=== PATIENT | male | born 1995 | race Caucasian/White ===

== ENCOUNTER 2018-04-21 01:40 | Inpatient (IN) ==
--- NOTE | 2018-04-21 01:47 | Emergency Department Note ---
Disposition Clinical Impression: Suicidal ideation Suicide attempt by hanging Qualifiers: Encounter type: initial encounter Qualified Code(s): T71.162A - Asphyxiation due to hanging, intentional self-harm, initial encounter Disposition: Admitted As Inpatient Condition: Fair Time of Disposition: 04:33 General Adult HPI - General Stated complaint: SI Time Seen by Provider: 04/21/18 01:46 Source: patient, EMS Mode of arrival: EMS Limitations: no limitations Nursing Notes Reviewed: Yes Vital Signs Reviewed: Yes - History of Present Illness HPI Narrative: Patient is a 22-year-old male who is transferred from [facility] via EMS for suicidal ideation and one a evaluation. Patient states that he has history of depression and anxiety, does not take his medications and has not for some time. Patient has had suicidal ideation for many months, with attempt in December with attempt of slashing his wrists. This was not successful, and did not get hospitalized during this time. Patient states that today he had suicidal ideation, went to the store and purchased a rope, he notes he is very specific in the type of breath that he purchased, with the intent to go to a tree and hang himself. He states that he did attempt to hang himself at his brother's home, however his brother found him and he left at that point. He notes he then went to his mother's house, and while being chased by his stepfather, he attempted to hang himself again. His stepfather, grabbed him and the police were called. There is also note that the patient was driving 100 miles per hour, and the police also were trying to find him for this. Patient states that he did drink alcohol today, denies drug use. No auditory or visual hallucinations. Multiple suicide attempts in the past. No homicidal ideation. - Related Data Allergies Allergy/AdvReac Type Severity Reaction Status Date / Time Bee Pollen Allergy Anaphylaxis Verified 04/21/18 02:02 venom-honey bee Allergy Anaphylaxis Verified 04/21/18 02:02 [bee venom (honey bee)] Review of Systems: In addition to that documented in the HPI above, the additional ROS was obtained: General: Denies fever. Denies chills. Denies weight loss. Denies behavioral change. Eyes: Denies visual changes. ENT: Denies nasal congestion. Denies sore throat. Denies hearing change. Cardio: Denies chest pain. Denies palpitations. Respiratory: Denies cough. Denies shortness of breath. Denies wheezing. GI: Denies nausea, Denies vomiting, or diarrhea. Denies hematochezia denies melena. Denies abdominal pain. : Denies dysuria, hematuria, or urinary retention MSK: Denies back pain. Denies joint swelling. Neuro: Denies slurred speech. Denies numbness or tingling. Denies focal weakness. Denies headache. Denies loss of consciousness. Psych: Affirm suicidal ideation, no visual, auditory or further hallucinations, denies homicidal ideation, affirms history of depression and anxiety All systems ED: reviewed and negative except as stated. Review of Systems: As Per HPI Past Medical History - Past Medical History Medical history: Reports: no medical history Surgical history: Reports: non-contributory Psychiatric history: Reports: anxiety - Social History Smoking Status: Never smoker Smokeless Tobacco Status: No Alcohol use: Reports: occasionally Drug use: Reports: none Physical Exam General: Conversant. No apparent distress. Follow commands. Appears stated age. Neck: No JVD. Trachea midline. Neck supple. No midline tenderness, patient able to rotate his head left and right without difficulty Eyes: PERRL. No scleral icterus. HENT: Normocephalic and atraumatic. Moist mucus membranes. Cardiovascular: Regular rate and rhythm. Normal S1 and S2. No murmurs appreciated. Normal capillary refill. Extremities well perfused with 2+ distal pulses bilaterally. No edema. Pulmonary: Normal and equal breath sounds bilaterally, anteriorly and posteriorly. No wheezes, rales, or rhonchi. Not in respiratory distress. Speaks in full sentences. Abdomen: Soft, nondistended, without tenderness. No bruits or masses. No guarding or rebound. Neuro: Alert and oriented x3. No slurred speech. No focal deficits noted. Skin: Multiple superficial linear abrasions to the anterior neck, nonbleeding nonerythematous, slightly tender to palpation Musculoskeletal: No bony abnormalities visualized. Moves all extremities. Psych: Anxious during examination. Course Vital Signs Temperature 98.6 F 04/21/18 02:09 Pulse Rate 76 04/21/18 02:09 Respiratory Rate 20 04/21/18 02:09 Blood Pressure 138/74 04/21/18 02:09 O2 Sat by Pulse Oximetry 98 04/21/18 02:09 Temperature 98.6 F 04/21/18 02:09 Pulse Rate 76 04/21/18 02:09 Respiratory Rate 20 04/21/18 02:09 Blood Pressure 138/74 04/21/18 02:09 O2 Sat by Pulse Oximetry 98 04/21/18 02:09 Oxygen Delivery Oxygen Delivery Room Air Medical Decision Making - MDM Narrative Medical decision making narrative: Patient is a 22-year-old male presenting with suicidal ideation. Patient is coming from [facility] for medical clearance, upon review of labs, CBC, BMP as well as further urinalysis and urine screening are all normal and negative. Does show alcohol at 69. This point in time, one he will be called as he has been medically cleared. Patient is currently alert and oriented, cooperative with examination. Per one a evaluation, patient will be admitted for further treatment on 1 A. At this point in time patient will be admitted. Patient has remained stable in the ER. - Lab Data Lab results reviewed: Yes I reviewed the patient's lab results.
--- NOTE | 2018-04-21 02:19 | Emergency Department Note ---
Disposition Clinical Impression: Suicidal ideation Suicide attempt by hanging Qualifiers: Encounter type: initial encounter Qualified Code(s): T71.162A - Asphyxiation due to hanging, intentional self-harm, initial encounter Disposition: Admitted As Inpatient Condition: Fair Forms: ED Satisfaction Letter General Adult HPI - General Chief complaint: ED Psychiatric Symptoms Stated complaint: SI Time Seen by Provider: 04/21/18 01:46 Source: patient, EMS Limitations: no limitations Nursing Notes Reviewed: Yes Vital Signs Reviewed: Yes - History of Present Illness Pain Scale: 6 - Related Data Allergies Allergy/AdvReac Type Severity Reaction Status Date / Time Bee Pollen Allergy Anaphylaxis Verified 04/21/18 02:02 venom-honey bee Allergy Anaphylaxis Verified 04/21/18 02:02 [bee venom (honey bee)] Past Medical History - Past Medical History Medical history: Reports: asthma Surgical history: Reports: non-contributory Psychiatric history: Reports: anxiety - Social History Smoking Status: Current every day smoker Smokeless Tobacco Status: No Alcohol use: Reports: occasionally, heavy, recent Drug use: Reports: none Physical Exam - General Limitations: no limitations General appearance: alert Course Vital Signs Temperature 98.6 F 04/21/18 02:09 Pulse Rate 76 04/21/18 02:09 Respiratory Rate 20 04/21/18 02:09 Blood Pressure 138/74 04/21/18 02:09 O2 Sat by Pulse Oximetry 98 04/21/18 02:09 Temperature 98.6 F 04/21/18 02:09 Pulse Rate 76 04/21/18 02:09 Respiratory Rate 20 04/21/18 02:09 Blood Pressure 138/74 04/21/18 02:09 O2 Sat by Pulse Oximetry 98 04/21/18 02:09 Oxygen Delivery Oxygen Delivery Room Air Medical Decision Making - Lab Data Lab results reviewed: Yes I reviewed the patient's lab results. Labs from his visit at [facility] emergency Department were reviewed and unremarkable. Tox screen negative. Alcohol level 64. Attestation Statement - Attestation Attestation: I, Gerard Zaldivar MD, personally evaluated this patient and discussed their management with the resident physician. I reviewed the resident's note and agree with the documented findings, medical decision making, and plan of care. 22-year-old male transferred here from [facility] emergency department for psychiatric evaluation. Patient to a rope over [place] tree and tried to hang himself with a noose. His stepfather was apparently they are and prevented him from succeeding with this. On examination patient is well-developed well-nourished male in no acute distress. He is alert and oriented 3. No cyanosis or diaphoresis. Breath sounds clear and equal bilaterally. Heart regular rate and rhythm. Abdomen soft and nontender with normal bowel sounds. The provisional abrasions to the anterior throat. No bruising or red walsh or abrasions. Full range of motion of the neck. [address] psychiatry department was consulted to evaluate patient in the emergency department. After evaluation the patient is being admitted to the [address] psychiatric unit.
[2018-04-21] MEDS ORDERED: hydrOXYzine pamoate 25 MG CAPSULE PO PRN (06:01)
[2018-04-21] MEDS ORDERED: Acetaminophen 325 MG TABLET PO PRN (06:01)
[2018-04-21] MEDS ORDERED: MOM Conc 10 ML UD.LIQ PO PRN (06:01)
[2018-04-21] MEDS ORDERED: Haloperidol Lactate 5 MG/ML VIAL IM PRN (06:01)
[2018-04-21] MEDS ORDERED: *HR* LORazepam 1 MG TABLET PO PRN (06:01)
[2018-04-21] MEDS ORDERED: *HR* LORazepam 2 MG/ML VIAL IM PRN (06:01)
[2018-04-21] MEDS ORDERED: traZODone 50 MG TABLET PO PRN (06:01)
[2018-04-21] MEDS ORDERED: Mag Hydrox/Al Hydrox/Simeth 30 ML UDC PO PRN (06:01)
[2018-04-21] MEDS ORDERED: Nicotine 2 MG GUM BC PRN (11:39)
--- NOTE | 2018-04-21 11:43 | Psychiatry History & Physical ---
Date of Encounter: 04/21/18 Time of Encounter: 11:27 History of Present Illness Patient Stated Chief Complaint: suicidal ideation Medicare Admission Attestation: For traditional Medicare patients the provided hospital inpatient services are reasonable and necessary and in the case of services not specified as inpatient-only under 42 CFR 419.22 (n), that they are appropriately provided as inpatient services in accordance 42 CFR 412.3. For Critical Access Hospital the patient may reasonably be expected to be discharged or transferred to a hospital within 96 hours after admission to the Critical Access Hospital. Admitted From: Home Plans for Post Hospital Care: Home History of Present Illness: Mr. Dao is a 22 year old male who was admitted for suicidal ideation. Client states he went to [employer] and bought a rope to make a noose. Claims he went to his brother's house to hang himself but the greenhouse florist stopped him. Client states he then went to his stepfather's house. He ended up running into the guy claiming he planned to hang himself from a tree but his stepfather stopped him and the police were called. Client reports he has had SI off and on since November when his girlfriend left him for another man and took their children. Girlfriend and kids returned but then left again two days ago. Client states he has trouble being alone and that his house is empty right now. Also feels isolated at work because he spends most of his day driving alone in his car-covers a wide area for work including parts of [place], [place] and [place]. Per client he has supportive family but currently he is living alone. Denies SI today but unable to express any positive coping skills. Client also denying depression and states his mood is "mellow." However, client reports limited sleep, subsisting on "Malhotra's pies" for four months, and SI off and on. Previously took Paxil and Valium from his PCP for panic attacks. However, denies anxiety for the last year and no longer on any medications. No other mental health history. Physically healthy. Thinks there are a "couple people" with anxiety in the family but unable to say who. Smokes THC on occasion. He fuentes drinker from November until about two weeks ago. Drinking a case of beer daily. However, except the day of admission no alcohol in last two weeks. Denies any withdrawal. Client does not want to start any medications and does not think he needs treated. Discussed counseling and he is agreeable to this. Also discussed staying with a family member or friend after discharge. Client reluctant to do so but indicated he would think about this today. Past Med Surg Social Fam HX - Past Medical History Medical history: no medical history - Past Psychiatric History Psychiatric history: Reports: anxiety Family psychiatric history: Yes Family Psychiatric History Details: states some family members have anxiety Family History of Suicide: None - Past Surgical History Surgical History: non-contributory - Social History Smoking Status: Current every day smoker Smokeless Tobacco Status: No Alcohol use: occasionally Drug use: marijuana Medications & Allergies Allergy/AdvReac Type Severity Reaction Status Date / Time Bee Pollen Allergy Anaphylaxis Verified 04/21/18 02:02 venom-honey bee Allergy Anaphylaxis Verified 04/21/18 02:02 [bee venom (honey bee)] Review of Systems Constitutional: Denies: fever, chills, weakness, weight change Eyes: Denies: eye pain, vision change Ears, Nose, Throat: Denies: ear pain, throat pain, dental pain, hearing loss, congestion Cardiovascular: Denies: chest pain, palpitations, dyspnea on exertion Respiratory: Denies: cough, dyspnea, wheezes Gastrointestinal: Denies: abdominal pain, nausea, vomiting, diarrhea, constipation Genitourinary male: Denies: urgency, dysuria, frequency, genital lesions Musculoskeletal: Denies: joint swelling, joint pain Integumentary: Denies: rash, lesions, pruritus Neurological: Denies: headache, weakness, numbness, memory loss Endocrine: Denies: fatigue, heat or cold intolerance Hematologic/Lymphatic: Denies: easy bruising, lymphadenopathy Allergic/Immunologic: Denies: urticaria, itchy eyes Exam - HEENT Head exam IM: Present: atraumatic Eye exam IM: Present: EOMI, normal appearance, PERRL ENT exam IM: Present: normal exam - Neurological Neurological exam: Present: CN II-XII intact - Respiratory Respiratory exam IM: Present: CTAB - GI/Abdominal GI/Abdominal exam IM: Present: normal bowel sounds, soft. Absent: tenderness - Extremities Extremities exam IM: Present: calf tenderness - Skin Skin exam IM: Present: dry, warm - Constitutional Vitals: Temp Pulse Resp BP Pulse Ox 98.6 F 76 20 138/74 98 04/21/18 02:09 04/21/18 02:09 04/21/18 02:09 04/21/18 02:09 04/21/18 02:09 General appearance: age & developmentally appropriate, well-groomed, well- nourished - Musculoskeletal Gait: normal Station: relaxed Strength & Tone: normal for patient - Psychiatric Patient Orientation: Yes Person, Yes Time, Yes Place Level of alertness: Alert Behavior: calm, cooperative Psychomotor activity: Normal Eye Contact: Maintains Eye Contact Mood Description: Depressed Affect description: congruent with mood Speech Volume: Normal Speech pattern: normal rate, normal rhythm, normal tone, fluent, spontaneous Language & Vocabulary: consistent with education Thought Process: Linear Thought Content: Yes Suicidal ideation, No Homicidal ideation, No Overt delusions Perceptual Disturbances: No Auditory hallucinations, No Visual hallucinations Attention Span Ability: Capable of Focused Attention Memory Description: Grossly Intact Patient Reliability: Reliable Historian Fund of knowledge: Yes abstraction ability, Yes average, Yes aware of current events Intelligence Estimate: Average Insight: Minimal Assessment and Plan (1) Major depression, recurrent Current visit: Yes Status: Acute Plan: Admit inpatient for safety and stabilization, Close observation, Suicide Precautions per unit protocol, Encourage participation in unit milieu, Group Therapy, Monitor sleep, Monitor appetite Risks, benefits, side effects, alternatives discussed w/pt: Yes Patient agreeable to treatment: Yes Plans for Post Hospital Care: Home Estimated Length of Stay (Days): 4 Qualifiers: Active/Remission status: currently active Major depression episode severity: severe Psychotic features: without psychotic features Qualified Code(s): F33.2 - Major depressive disorder, recurrent severe without psychotic features
[2018-04-22 10:03] VITALS: BP 123/83
--- NOTE | 2018-04-22 11:27 | Discharge Summary ---
Date of Encounter: 04/22/18 Time of Encounter: 09:00 Diagnosis - Discharge Diagnosis (1) Major depression, recurrent Status: Acute Qualifiers: Active/Remission status: currently active Major depression episode s everity: severe Psychotic features: without psychotic features Qualified Code(s): F33.2 - Major depressive disorder, recurrent severe without psychotic features Medications - Discharge Medications No Known Home Drugs 04/21/18 [History] Allergy/AdvReac Type Severity Reaction Status Date / Time Bee Pollen Allergy Anaphylaxis Verified 04/21/18 02:02 venom-honey bee Allergy Anaphylaxis Verified 04/21/18 02:02 [bee venom (honey bee)] Provider Date of admission: 04/21/18 04:25 Primary care physician: PCP NONE Discharging clinician: Claudette Hassan Psychiatry Exam - Constitutional Vitals: Temp Pulse Resp BP Pulse Ox 97.6 F 89 14 123/83 98 04/22/18 09:00 04/22/18 09:00 04/22/18 09:00 04/22/18 09:00 04/22/18 09:00 General appearance: age & developmentally appropriate, average Additional observations: Large tattoo on the left wrist that says, "RIP Peggy." Hair is cut short on the sides, with a ponytail in the back. It appears to have grown out. - Musculoskeletal Gait: normal Station: relaxed Strength & Tone: normal for patient - Psychiatric Patient Orientation: Yes Person, Yes Time, Yes Place, Yes Circumstance Level of alertness: Alert Behavior: guarded Psychomotor activity: Normal Eye Contact: Maintains Eye Contact Mood Description: Irritable Patient description of mood: "fine" Affect description: congruent with mood, other (patient does not appear to be depressed, but is irritable because he wants to be discharged today) Speech Volume: Normal Speech pattern: normal rate, normal rhythm, normal tone, clear, coherent Language & Vocabulary: consistent with education Thought Process: Intact, Linear, Goal Oriented (goal to be discharged) Thought Content: Yes Intact, No Suicidal ideation, No Homicidal ideation Perceptual Disturbances: No Reacting to internal stimuli, No Auditory hallucinations, No Visual hallucinations Attention Span Ability: Capable of Focused Attention Memory Description: Grossly Intact Patient Reliability: Questionable Historian Fund of knowledge: Yes average Intelligence Estimate: Average Judgment: Fair Insight: Partial Hospital Course Hospital course: Mr. Dao is a 22 year old male who was admitted for suicidal ideation. Patient wants to [employer] and bought a noose to hang himself, but was stopped by his brother's fun house attendant. Patient was not placed on medication during this admission. He is interested in following up with counseling. Patient is somewhat irritable today because he wants to go home and feels that the inpatient unit is "awful." He is also irritable because he wants a cigarette. This provider explained to the patient that he has nicotine replacement therapy available to him while on the unit. However, patient states that the was "awful" and that the nicotine patch causes skin cancer. Patient is now adamantly denying suicidal ideation and homicidal ideation. He is also denying auditory and visual hallucinations. He denies any depression or anxiety. He states he slept "horribly." Patient states that if he starts to experience suicidal ideation while at home, he will talk to his brother's fun house attendant that will be staying with the patient. Contact was made by attending physician with the fun house attendant regarding this plan. Patient was educated of his diagnosis, but denied medication. He was educated on the risks, benefits, and side effects of this treatment and alternative treatment options and was monitored for responsiveness and side effects. Mood, anxiety, sleep, appetite, and interest improved, as did future orientation. Self-harm thoughts subsided, thinking cleared, and mood stabilized. Patient was able to attend both individual and group therapy sessions, as well as meeting with the psychiatrist daily and urged to discuss any medication or treatment issues or other concerns. The patient was educated primarily by verbal means about their diagnosis and manifestations in their life. The option for treatment including group and individual therapy programming was offered to the patient in the use of medications with all their potential risks, benefits, and side effects were discussed with the patient at length. The patient was given the opportunity to ask questions and was noted to participate in the treatment in the planning process. The patient felt ready and eager to be discharged from the inpatient psychiatric unit to continue on with treatment as an outpatient. The patient agreed that is they were safe for this disposition. The patient was considered to be able to participate in informed consent and decision making with respect to medical, legal, and financial issues of the time of discharge. At the time of discharge the patient adamantly denied any concerns for lethality including suicidal or homicidal thoughts ideations or plans and was future oriented toward ongoing mental health care, medical follow-up. Time spent discussing smoking cessation with patient: 3 to 10 minutes Does patient wish to continue nicotine replacement upon disc: No - Time Spent with Patient Total time spent providing and/or coordinating discharge services: Greater than 30 minutes Specific discharge activities: Interval history reviewed. Available labs reviewed. Psychotherapy provided. Patient had an opportunity to ask questions and address concerns. Patient was in agreement with the treatment plan. The risks, benefits, and side effects of medications were discussed with the patient, including alternatives and treatment. However, patient was not interested in starting medications while on the unit. The patient was educated on the abstaining from any alcohol or illicit substances, following up with all scheduled appointments, and taking all medications as prescribed. Assessment and Plan - Patient/Caregiver Discharge Instructions Activity: resume usual activities as tolerated, return to work Diet: regular diet Additional Instructions: Continue current medications. Follow up with outpatient mental health. Encourage continued therapy in a group or individual setting. The patient was discharged to home, with plans for a fun house attendant to stay with the patient for two weeks. - [facility] 12:00 pm (You have an appointment scheduled for Wednesday, June 06, 2018 at 12:00 PM with Yolanda Ambriz for an initial intake assessment. This appointment typically takes 1 1 hours and will cover your current symptoms and goals for treatment. Please complete the New Patient Intake Packet provided to you by [facility] staff and bring this with you to this appointment. Please also bring your insurance card, identification, proof of residence (utility bill or similar piece of mail), and proof of income (if applicable). If you are unable to keep this appointment, please call the office at the number above as soon as possible. ) Functional capacity at discharge: independent ambulation Overall status at discharge: Stable Disposition: Home, Self-Care Quality - Multiple Antipsychotics Patient discharged on 2 or more antipsychotic medications: No - Attending Attestation Client initially angry this morning stating everything about his hospitalization has been horrible. Upset that nursing staff allowed him to sleep instead of getting him up to brush his teeth, shower, and eat. States he would never consider suicide again as he would never want to come back here. After talking for a while he warmed up and was smiling by the end of the interview. Admits he has been depressed without his kids. Interested in counseling but not medications. Family friend has agreed to stay with him. This field underwriter spoke with friend who reports that client is safe and denied having any safety concerns having client come home. Client denying SI, intent, or plan today. Gave this field underwriter a list of people who support him. Future oriented this morning talking about his supports and his job. Clearly makes poor decisions at times but client unhappy in the hospital and keeping him inpatient against his will is not going to be productive. In this field underwriter's opinion further involuntary hospitalization will only worsen his mood and increase his anger. Client relaxed and bright when talking about going home and has multiple people who are willing to vouch for his safety. Total time spent with client greater than 30 minutes. Procedures - Procedures Procedures: Medication Management, Crisis Stabilization, Supportive Therapy, Group Therapy, Psychoeducational Therapy
== END 2018-04-22 12:15 | disposition home or self-care (01) | DRG 885 ==
LOC: EMEROOARM 01:40 → 1ANU 04:25
PROVIDERS: ADMIT Psychiatry & Neurology Psychiatry; ATTEND Psychiatry & Neurology Psychiatry